=== PATIENT | male | born 1980 | race Caucasian/White ===

== ENCOUNTER 2023-09-21 08:35 | Emergency (ER) | payer BC, MEDICAID, SELFPAY ==
[2023-09-21] VITALS (7 sets, daily range): BP systolic 102–112; BP diastolic 65–70; PULSE 84–102; RESP 11–24; TEMP 36.8; O2SAT 96–98; BMI 33.5
--- NOTE | 2023-09-21 09:07 | CT_ITS ---
WS: [id number] CT ABDOMEN AND PELVIS NONCONTRAST HISTORY: flank pain unable to urinate TECHNIQUE: Imaging performed through the abdomen and pelvis. Coronal and sagittal reformats are submi tted. All CT scans at [facility] use at least one of these dose optimization techniques: auto mated exposure control; mA and/or kV adjustment per patient size (includes targeted exams where dose is matched to clinical indication); or iterative reconstruction. DLP: 1056.53 mGy.cm COMPARISON: None available. Lower thorax: Areas of atelectasis and scarring at the lung bases. Benign granuloma LEFT lower lobe. No mass. Normal size heart. Liver: Mild hepatic steatosis. No mass. Gallbladder: Normal gallbladder. No pericholecystic fluid or cholelithiasis. No gallbladder wall thic kening. Pancreas: Normal size and attenuation. Normal pancreatic duct. No pancreatitis or mass. Spleen: Normal size with granulomata. Adrenal glands: Normal. No mass. Right kidney: No renal calcification or obstruction. No perinephric stranding. Normal ureter. Left kidney: No renal mass or obstruction. No perinephric stranding. Normal LEFT ureter. Aorta: Normal. No free fluid, intraperitoneal air or significant lymphadenopathy. GI tract: Normal stomach. No small bowel obstruction. The appendix is measuring up to 9 mm in diamete r but there is no adjacent inflammation or stranding. No significant diverticular disease. No free fl uid in the pelvis. Abdominal wall: Small umbilical hernia contains fat only. Pelvis: Nondistended urinary bladder. No free fluid. Osseous structures: Unremarkable. CT/CT kidney stone [id number] IMPRESSION: 1. No renal or ureteral obstruction or inflammatory changes. 2. Negative urinary bladder. 3. No free fluid, adenopathy or free air. 4. The appendix is measuring just slightly greater than normal size especially involving the base but there is no evidence for acute appendicitis. There is n o stranding or fluid associated with the appendix. 5. Mild constipation.
--- NOTE | 2023-09-21 09:07 | ED_ITS ---
HPI - Male Genitourinary 2 General: Chief complaint: Urogenital-Male Stated complaint: difficulties urination, genital pain, back pain Time Seen by Provider: 09/21/23 08:43 Source: patient Mode of arrival: ambulatory History of Present Illness: 43-year-old male presents emergency room complaint difficulty with urination. Has lower abdominal midline suprapubic pain radiating to the low back. No flank pain no hematuria. He does note his urine is foul-smelling dark. In the past he has had difficulty with urination at night. He denies any recent unprotected intercourse. Denies any penile drainage. Associated symptoms: Deny discharge, dysuria, fevers/chills, hematuria, nausea, rash, swelling, urinary incontinence, urinary retention, mass or vomiting Review of Systems 2 Const: Denies: fever(s) or chills Card: Denies: chest pain Resp: Denies: dyspnea GI: Reports: abdominal pain; Denies: nausea or vomiting : Reports: difficulty urinating and difficulty starting urination; Denies: dysuria, urinary frequency, urinary urgency, urinary incontinence or hematuria Musc: Reports: back pain; Denies: neck pain Skin/Breast: Denies: rash PFSH ED 2 PFSH: Medical History Psychiatric care Physical Exam 2 Const: COMMON NORMALS: no acute distress GENERAL APPEARANCE: cooperative and comfortable ORIENTATION/CONSCIOUSNESS: Yes awake, Yes oriented to person, Yes oriented to place and Yes oriented to time HENMT: COMMON NORMALS: normocephalic, atraumatic and hearing grossly normal bilaterally HEAD & SCALP: normocephalic and atraumatic Resp: COMMON NORMALS: normal respiratory effort, No retractions, No use of accessory muscles and clear to auscultation bilaterally AUSCULTATION: clear to auscultation bilaterally Cardio: COMMON NORMALS: regular rate, regular rhythm and No murmurs present (Cardio) RATE: regular rate RHYTHM: regular rhythm GI: COMMON NORMALS: Soft to palpation and No hepatosplenomegaly present A USCULTATION: Yes normoactive bowel sounds PALPATION: Yes Soft to palpation, No Tenderness to palpation present (GI), No Guarding due to palpation present (GI) and Yes No hepatosplenomegaly present Extremity: COMMON NORMALS: normal to inspection, capillary refill normal, no clubbing, cyanosis or edema, no calf tenderness and no pedal edema Neuro: SENSORIUM/ORIENTATION: Yes oriented to person, Yes oriented to place and Yes oriented to time Skin: COMMON NORMALS: no rashes or lesions noted GENERAL SKIN EXAM: no rashes or lesions noted Course 2 Vital Signs: Vital signs: Vital Signs Temperature 98.2 F 09/21/23 08:46 Pulse Rate 84 09/21/23 11:00 Respiratory Rate 20 H 09/21/23 11:00 Blood Pressure 112/69 09/21/23 11:00 Pulse Oximetry 97 09/21/23 09:30 Oxygen Delivery Me thod Room Air 09/21/23 08:46 MDM - Male Medical Decision Making Patient has cystitis. He has no CVA tenderness does have some lower back pain and gets discomfort from his cystitis. He has no evidence of urinary retention. He has had issues with the prostate in the past will start on Cipro he was given a dose of ceftriaxone here. Discharge home follow-up with his primary care doctor return to the emergency room if he has further problems. Differential Diagnosis Likely urinary tract infection and acute retention of urine Medical Records I reviewed the patient's medical records. Lab Data I reviewed the patient's lab results. 09/21/23 10:40 09/21/23 10:40 Radiology Impressions Abdomen/Pelvis CT 09/21/23 09:07 IMPRESSION: 1. No renal or ureteral obstruction or inflammatory changes. 2. Negative urinary bladder. 3. No free fluid, adenopathy or free air. 4. The appendix is measuring just slightly greater than normal size especially involving the base but there is no evidence for acute appendicitis. There is no stranding or fluid associated with the appendix. 5. Mild constipation. Laboratory Results WBC 14.35 10^3/uL (3.29-11.43) H 09/21/23 10:40 RBC 5.18 10^6/uL (3.85-5.65) 09/21/23 10:40 Hgb 14.60 g/dL (11.27-16.99) 09/21/23 10:40 Hct 45.0 % (37-53) 09/21/23 10:40 MCV 86.9 fl (82-101) 09/21/23 10:40 MCH 28.2 pg (27-33) 09/21/23 10:40 MCHC 32.4 g/dL (30-55) 09/21/23 10:40 RDW 12.9 % (12.1-15.1) 09/21/23 10:40 Plt Count 272 10^3/cmm (157-399) 09/21/23 10:40 MPV 10.6 fL (7.4-10.4) H 09/21/23 10:40 Neut % (Auto) 76.2 % 09/21/23 10:40 Lymph % (Auto) 14.8 % 09/21/23 10:40 Ballard % (Auto) 7.2 % 09/21/23 10:40 Eos % (Auto) 0.9 % 09/21/23 10:40 Baso % (Auto) 0.4 % 09/21/23 10:40 Neut # (Auto) 10.94 10^3/uL (1.8-7.7) H 09/21/23 10:40 Lymph # (Auto) 2.1 10^3/uL (0.8-4.8) 09/21/23 10:40 Ballard # (Auto) 1.0 10^3/uL (0.2-0.9) H 09/21/23 10:40 Eos # (Auto) 0.1 10^3/uL (0.0-0.8) 09/21/23 10:40 Baso # (Auto) 0.1 10^3/uL (0.0-0.1) 09/21/23 10:40 Nucleated RBC % (auto) 0 % 09/21/23 10:40 Nucleated RBCs # 0.0 /100WBC 09/21/23 10:40 Sodium 136 mmol/L (136-145) 09/21/23 10:40 Potassium 4.0 mmol/L (3.5-5.1) 09/21/23 10:40 Chloride 102 mmol/L (98-107) 09/21/23 10:40 Carbon Dioxide 25 mmol/L (22-29) 09/21/23 10:40 Anion Gap 13.0 (5-19) 09/21/23 10:40 BUN 12 mg/dL (6-20) 09/21/23 10:40 Creatinine 0.8 mg/dL (0.7-1.2) 09/21/23 10:40 GFR Calculation 104.5 mL/min (90-130) 09/21/23 10:40 Glucose 96 mg/dL (65-115) 09/21/23 10:40 Calculated Osmolality 282 mOsm/kg (285-295) L 09/21/23 10:40 Calcium 8.6 mg/dL (8.5-10.5) 09/21/23 10:40 Total Bilirubin 0.4 mg/dL (0.15-1.2) 09/21/23 10:40 AST 11 U/L (0-40) 09/21/23 10:40 ALT 11 U/L (0-41) 09/21/23 10:40 Alkaline Phosphatase 121 U/L (40-130) 09/21/23 10:40 Total Protein 7.6 g/dL (6.6-8.7) 09/21/23 10:40 Albumin 4.1 g/dL (3.5-5.2) 09/21/23 10:40 Globulin 3.5 g/dL (1.3-4.6) 09/21/23 10:40 Urine Color Yellow (Yellow) 09/21/23 09:51 Urine Appearance Cloudy (CLEAR) A 09/21/23 09:51 Urine pH 5 (5-7) 09/21/23 09:51 Ur Specific Napoleon 1.020 (1.005-1.030) 09/21/23 09:51 Urine Protein 1+ (Negative) H 09/21/23 09:51 Urine Glucose (UA) Norm (Normal) 09/21/23 09:51 Urine Ketones 1+ (Negative) H 09/21/23 09:51 Urine Blood 3+ (Negative) H 09/21/23 09:51 Urine Nitrate Positive (Negative) H 09/21/23 09:51 Urine Bilirubin 1+ (Negative) H 09/21/23 09:51 Urine Urobilinogen 4 mg/dL (Negative) H 09/21/23 09:51 Ur Leukocyte Esterase 2+ (Negative) H 09/21/23 09:51 Urine RBC 5-10 /hpf (0-2) H 09/21/23 09:51 Urine WBC Too numerous to cnt /hpf (0-5) H 09/21/23 09:51 Ur Squamous Epith Cells 0-4 /hpf (0-5) H 09/21/23 09:51 Amorphous Sediment Not Reportable 09/21/23 09:51 Urine Bacteria 3+ /hpf (NONE) H 09/21/23 09:51 All radiology interpretation(s) finalized by discharge Discharge Plan Discharge Patient Disposition: Home Clinical Impression: Urinary tract infection Condition: Stable Prescriptions: New Cipro 500 mg tablet 500 mg PO BID 10 Days Qty: 20 0RF Discontinued amoxicillin 500 mg tablet 500 mg PO BID 10 Days Qty: 20 0RF No Action mirtazapine 15 mg tablet 15 mg PO BEDTIME Discharge Orders: Discharge ED (Routine); Ordered 09/21/23 Ordered By: Manuel Howard Discharge Diet: Usual diet Discharge Activity: Resume usual activity Patient Instructions: Urinary Tract Infection in Men (ED), Opioid Safety, Pain Management Activity Restrictions/Additional Instructions: Thank you for choosing [facility] for your healthcare needs today. It is very important that you follow up as instructed or that you return to the Emergency Department should you have concerns or if your condition changes or worsens in any way. You were seen today for difficulty with urination there is no retained urine your CT of your abdomen did not show any acute abnormalities your labs did show an elevated white count and signs of an acute cystitis. You were given a dose of antibiotics in the emergency room and discharged home with ciprofloxacin 500 twice a day for 10 days. 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
[2023-09-21 10:55] LABS: Basophils # 0.1 10^3/uL (0.0-0.1); Basophils % 0.4 %; Eosinophils # 0.1 10^3/uL (0.0-0.8); Eosinophils % 0.9 %; Lymphocytes # 2.1 10^3/uL (0.8-4.8); Lymphocytes % 14.8 %; Mean Corpuscular HGB Conc 32.4 g/dL (30-55); Mean Corpuscular Hemoglobin 28.2 pg (27-33); Mean Corpuscular Volume 86.9 fl (82-101); Mean Platelet Volume 10.6 fL (7.4-10.4); Monocytes % 7.2 %; Neutrophils # 10.94 10^3/uL (1.8-7.7); Neutrophils % 76.2 %; Nucleated Red Blood Cells % 0 %; Platelet Count 272 10^3/cmm (157-399); Red Blood Count 5.18 10^6/uL (3.85-5.65); Red Cell Distribution Width 12.9 % (12.1-15.1); White Blood Count 14.35 10^3/uL (3.29-11.43)
[2023-09-21 11:11] LABS: Alanine Aminotransferase 11 U/L (0-41); Albumin Level 4.1 g/dL (3.5-5.2); Alkaline Phosphatase 121 U/L (40-130); Aspartate Amino Transferase 11 U/L (0-40); Blood Urea Nitrogen 12 mg/dL (6-20); Calcium 8.6 mg/dL (8.5-10.5); Carbon Dioxide 25 mmol/L (22-29); Chloride 102 mmol/L (98-107); Creatinine Clr Calc Pharmacy 146.3343; Globulin 3.5 g/dL (1.3-4.6); Glomerular Filtration Rate 104.5 mL/min (90-130); Glucose 96 mg/dL (65-115); Osmolality Calculated 282 mOsm/kg (285-295); Sodium 136 mmol/L (136-145); Total Bilirubin 0.4 mg/dL (0.15-1.2); Total Protein 7.6 g/dL (6.6-8.7)
[2023-09-21 11:13] LABS: Urine Appearance Cloudy (CLEAR); Urine Color Yellow (Yellow); pH Urine 5 (5-7)
[2023-09-21 11:14] LABS: Add Urine Microscopic? YES; Bilirubin Urine 1+ (Negative); Blood Urine 3+ (Negative); Glucose Urine UA Norm (Normal); Ketones Urine 1+ (Negative); Leukocyte Esterase Urine 2+ (Negative); Nitrate Urine Positive (Negative); Protein Urine 1+ (Negative); Urobilinogen Urine 4 mg/dL (Negative)
[2023-09-21 11:15] LABS: Bacteria Urine 3+ /hpf; Squamous Epithelial Cell Urine 0-4 /hpf (0-5); WBC Urine TOO NUMEROUS TO CNT /hpf (0-5)
[2023-09-21 11:16] LABS: Add Urine Culture? Yes
[2023-09-21] MEDS: cefTRIAXone 1,000 MG in sodium chloride 0.9% (plus) 50 ML 100 MG IV (12:07)
== END 2023-09-21 12:38 | disposition home or self-care (01) ==
PROVIDERS: Emergency Provider Family Medicine
DX: N30.90 Cystitis, unspecified without hematuria (principal)
CPT/HCPCS: 36415; 51798; 74176; 80053; 81001; 85025; 87077; 87086; 87186; 96365; 99285; J0696